=== PATIENT | male | born 2000 | race African-American/Black ===

== ENCOUNTER 2019-12-16 11:35 | Emergency (ER) | payer OTHER ==
[2019-12-16 12:18] VITALS: BP 111/52; PULSE 82; TEMP 98.1; BMI 18.6
--- NOTE | 2019-12-16 12:19 | PDOC ---
History of Present Illness - General Chief Complaint: Nausea/Vomiting Stated Complaint: Cold Symptoms Time Seen by Provider: 12/16/19 12:03 - History of Present Illness Initial Comments: 12/16/19 12:16 19yo M with no reported PMH was BIBEMS for nausea and vomiting since 2am. Patient states he has vomited around 6 times today and was unable to sleep. He reports smoking a "cup" of marijuana over the past day, as well as "a lot" of alcohol. Also reports generalized abdominal pain. States he is very hungry, but did not eat anything today because he "did not know what to eat." Normal BMs, passing gas. Is currently asking for food. States he has smoked 5g per day for the past 5 years, and had this sort of vomiting episode once before. PMH/PSH/Meds/Allergies: none ROS GENERAL/CONSTITUTIONAL: No fever or chills. HEAD, EYES, EARS, NOSE AND THROAT: No change in vision. No ear pain. No sore throat. CARDIOVASCULAR: No chest pain or shortness of breath RESPIRATORY: No cough, wheezing, or hemoptysis. GASTROINTESTINAL: nausea, vomiting. no diarrhea or constipation. GENITOURINARY: No dysuria, frequency, or change in urination. MUSCULOSKELETAL: No joint or muscle swelling or pain. No neck or back pain. SKIN: No rash NEUROLOGIC: No headache, vertigo, loss of consciousness, or change in strength/sensation. ENDOCRINE: No increased thirst. No abnormal weight change. PE GENERAL: Awake, alert, and fully oriented, dry heaving, moaning HEAD: No signs of trauma, normocephalic, atraumatic EYES: PERRLA, EOMI, sclera anicteric, conjunctiva clear ENT: Auricles normal inspection, hearing grossly normal, nares patent, oropharynx clear without exudates. Moist mucosa NECK: Normal ROM, supple, no lymphadenopathy, JVD, or masses LUNGS: No distress, speaks full sentences, clear to auscultation bilaterally HEART: Regular rate and rhythm, normal S1 and S2, no murmurs, rubs or gallops, peripheral pulses normal and equal bilaterally. ABDOMEN: Soft, nontender, normoactive bowel sounds. No guarding, no rebound. No masses EXTREMITIES : Normal inspection, Normal range of motion, no edema. No clubbing or cyanosis. NEUROLOGICAL: Normal speech, no focal sensorimotor deficits SKIN: Warm, Dry, normal turgor, no rashes or lesions noted Vital Signs Temp Pulse Resp BP Pulse Ox 98.1 F 82 16 111/52 L 100 12/16/19 11:51 12/16/19 11:51 12/16/19 11:51 12/16/19 11:51 12/16/19 11:51 MDM 19yo M with no reported PMH was BIBEMS for nausea and vomiting since 2am, and also reports abdominal pain. Most likely diagnosis is cannabinoid hyperemesis. Less likely appendicitis or other acute abdominal pathology. given normal abdominal exam. In the setting of repeat vomiting and poor PO intake, will get CBC to evaluate for infection, CMP for electrolyte abnormalities, and lipase. -CBC, CMP, lipase -tylenol, zofran, pepcide... then PO trial if improved 12/16/19 12:41 EKG: Sinus bradycardia with sinus arrhythmia, rate 59, qTC 384, no ischemic changes Labs: notable for WBC of 19.9 with left shift Lab Results WBC 19.9 K/mm3 (4.0-10.0) H 12/16/19 12:30 RBC 5.09 M/mm3 (4.00-5.60) 12/16/19 12:30 Hgb 15.4 GM/dL (11.7-16.9) 12/16/19 12:30 Hct 46.0 % (35.4-49) 12/16/19 12:30 MCV 90.5 fl (80-96) 12/16/19 12:30 MCHC 33.5 g/dl (32.0-35.9) 12/16/19 12:30 RDW 13.1 % (11.9-15.9) 12/16/19 12:30 Plt Count 210 K/MM3 (134-434) 12/16/19 12:30 Sodium 139 mmol/L (136-145) 12/16/19 12:30 Potassium 3.9 mmol/L (3.5-5.1) 12/16/19 12:30 Chloride 103 mmol/L (98-107) 12/16/19 12:30 Carbon Dioxide 27 mmol/L (21-32) 12/16/19 12:30 Anion Gap 8 MMOL/L (8-16) 09/14/20 12:30 BUN 11.8 mg/dL (7-18) 12/16/19 12:30 Creatinine 1.2 mg/dL (0.55-1.3) 12/16/19 12:30 Random Glucose 118 mg/dL (74-106) H 12/16/19 12:30 Calcium 10.0 mg/dL (8.5-10.1) 12/16/19 12:30 12/16/19 13:24 Patient still with n/v, somewhat improved. Will give another 4mg of zofran and reassess. 12/16/19 15:49 Patient without nausea, vomiting, or abdominal pain. Tolerating solid foods. Repeat abdominal exam: soft, non-tender. DC home with zofran and PCP f/u tomorrow at 4pm. Past History - Medical History Allergies/Adverse Reactions: Allergies Allergy/AdvReac Type Severity Reaction Status Date / Time No Known Allergies Allergy Verified 12/16/19 12:03 Home Medications: Ambulatory Orders Ondansetron [Zofran *Odt*] 4 mg SL QID PRN #12 od.tablet 12/16/19 Asthma: Yes COPD: No - Immunization History Immunization Up to Date: Yes - Psycho-Social/Smoking History Smoking Status: No Smoking History: Unknown if ever smoked Number of Cigarettes Smoked Daily: 0 - Substance Abuse Hx (Audit-C & DAST Scrn) How often the patient has a drink containing alcohol: Never Score: In Men: 4 or > Positive; In Women: 3 or > Positive: 0 Screen Result (Pos requires Nsg. Audit-10AR): Negative In the last yr the pt used illegal drug/Rx for NonMed reason: Yes Score: Yes response is considered Positive: 1 Screen Result (Positive result requires Nsg. DAST-10): Positive *Physical Exam - Vital Signs Last Vital Signs Temp Pulse Resp BP Pulse Ox 98.1 F 82 16 111/52 L 100 12/16/19 11:51 12/16/19 11:51 12/16/19 11:51 12/16/19 11:51 12/16/19 11:51 ED Treatment Course - LABORATORY CBC & Chemistry Diagram: 12/16/19 12:30 12/16/19 12:30 Discharge - Discharge Information Problems reviewed: Yes Clinical Impression/Diagnosis: Vomiting Qualifiers: Vomiting type: unspecified Vomiting Intractability: unspecified Nausea presence: with nausea Qualified Code(s): R11.2 - Nausea with vomiting, unspecified Leukocytosis Qualifiers: Leukocytosis type: unspecified Qualified Code(s): D72.829 - Elevated white blood cell count, unspecified Condition: Improved Disposition: HOME - Admission No - Additional Discharge Information Prescriptions: Ondansetron [Zofran *Odt*] 4 mg SL QID PRN #12 od.tablet PRN Reason: Nausea - Follow up/Referral Referrals: Jose Manuel Martinez MD [Primary Care Provider] - - Patient Discharge Instructions Patient Printed Discharge Instructions: DI for Vomiting -- Adult, DI for Cannabinoid Hyperemesis Syndrome Additional Instructions: You were seen in the ER for vomiting. We did a physical exam and labs, and we gave you fluids and anti-nausea and pain medication. You labs showed an elevated white blood count, which you should follow up about with your primary doctor tomorrow. We also sent zofran, an anti-nausea medication, to your pharmacy. Please stop using marijuana, as this may be the cause of you nausea and vomiting. Please return to the ER for new, continued, or worsening symptoms, fever, blood in your vomit, diarrhea, difficulty breathing, or any other reason. - Post Discharge Activity
[2019-12-16] MEDS ORDERED: FAMOTIDINE 20 MG/50 ML IVPB 20 MG/50 ML MG IVPB ONE ×2 (12:24→12:44)
[2019-12-16] MEDS ORDERED: ACETAMINOPHEN 1000 MG/100 ML VIAL (NON FORMULARY) IVPB ONE (12:24)
[2019-12-16] MEDS ORDERED: SODIUM CHLORIDE 0.9% 500 ML INFUS.BAG IV ONE ×2 (12:25→13:26)
[2019-12-16] MEDS ORDERED: ONDANSETRON 4 MG/2 ML VIAL IVPUSH ONE ×2 (12:25→13:19)
--- NOTE | 2019-12-16 13:19 | PDOC ---
Documentation entered by Bon Valladares SCRIBE, acting as scribe for Juan Pablo Rendon MD. Juan Pablo Rendon MD: This documentation has been prepared by the Jacquelyn grullon Xhesika, SCRIBE, under my direction and personally reviewed by me in its entirety. I confirm that the documentation accurately reflects all work, treatment, procedures, and medical decision making performed by me. Attending Attestation - Resident Resident Name: Shivam Barraza - ED Attending Attestation I have performed the following: I have examined & evaluated the patient, The case was reviewed & discussed with the resident, I agree w/resident's findings & plan, Exceptions are as noted - HPI HPI: 12/16/19 12:06 The patient is a 19y/o M with no pmh who presents to the ED BIBA for nausea, 6 episodes of nbnb vomiting, and generalized abdominal pain since 2AM. Pt states he smoked 5grams of marijuana over the past day and drank "a lot" of alcohol. Pt reports endorsing these symptoms in the past. Allergies: NKDA Social Hx: everyday marijuana smoker and alcohol. - Physicial Exam PE: 12/16/19 13:17 GENERAL: The patient is awake, alert, and fully oriented, Nontoxic - in no acute distress. HEAD: Normocephalic, atraumatic. EYES: extraocular movements intact, sclera anicteric, conjunctiva clear. ENT: Normal voice, dry mucous membranes. NECK: Normal range of motion, supple LUNGS: Breath sounds equal, clear to auscultation bilaterally. No wheezes, no rhonchi, no rales. HEART: Regular rate and rhythm, normal S1 and S2 without murmur, rub or gallop. ABDOMEN: Soft, no abd tenderess, No guarding, no rebound. No CVA tenderness EXTREMITIES: Normal range of motion, no edema. NEUROLOGICAL: No facial assymetry, Normal speech, PSYCH: Normal mood, normal affect. SKIN: Warm, Dry, normal turgor, 12/16/19 15:12 - Medical Decision Making 12/16/19 13:18 suspect cannibinoid hyperemesis syndrome vs gastritis vs gastroenteritis will treat ymptomatically will obtain blood work to r/o metabolid erangement 12/16/19 15:12 labs reviewed noted for leukocytosis with shif pt notes he is liliana massey abd pain repeat abd exam is soft suspect may be due to his discomfort/vomiting/stress response vs acute surgical process will PO challenge the pt and reasesss 12/16/19 16:12 pt tolerated oral intake abd remains sof tnontender will have pt fuwith PMD to repeat labs to ensure leukocytosis resolves Discharge - Discharge Information Problems reviewed: Yes Clinical Impression/Diagnosis: Vomiting Qualifiers: Vomiting type: unspecified Vomiting Intractability: unspecified Nausea presence: with nausea Qualified Code(s): R11.2 - Nausea with vomiting, unspecified Leukocytosis Qualifiers: Leukocytosis type: unspecified Qualified Code(s): D72.829 - Elevated white blood cell count, unspecified Condition: Improved Disposition: HOME - Additional Discharge Information Prescriptions: Ondansetron [Zofran *Odt*] 4 mg SL QID PRN #12 od.tablet PRN Reason: Nausea - Follow up/Referral Referrals: Jose Manuel Martinez MD [Primary Care Provider] - - Patient Discharge Instructions Patient Printed Discharge Instructions: DI for Vomiting -- Adult, DI for Cannabinoid Hyperemesis Syndrome Additional Instructions: You were seen in the ER for vomiting. We did a physical exam and labs, and we gave you fluids and anti-nausea and pain medication. You labs showed an elevated white blood count, which you should follow up about with your primary doctor tomorrow. We also sent zofran, an anti-nausea medication, to your pharmacy. Please stop using marijuana, as this may be the cause of you nausea and vomiting. Please return to the ER for new, continued, or worsening symptoms, fever, blood in your vomit, diarrhea, difficulty breathing, or any other reason. - Post Discharge Activity
[2019-12-16 13:51] LABS: BASO % 0.2 % (0-2.0); EOS % 0.2 % (0-4.5); HEMOGLOBIN 15.4 GM/dL (11.7-16.9); LYMPH % 5.2 % (8-40); MCH 30.3 pg (25.7-33.7); MCHC 33.5 g/dl (32.0-35.9); MEAN CELL VOLUME 90.5 fl (80-96); MEAN PLT VOLUME 9.8 fl (7.5-11.1); MONO % 7.3 % (3.8-10.2); NEUT % 87.1 % (42.8-82.8); PLATELET COUNT 210 K/MM3 (134-434); RBC 5.09 M/mm3 (4.00-5.60); RDW 13.1 % (11.9-15.9); WHITE BLOOD COUNT 19.9 K/mm3 (4.0-10.0)
[2019-12-16 14:00] LABS: ALBUMIN 4.6 g/dl (3.4-5.0); BILIRUBIN,TOTAL 0.6 mg/dL (0.2-1); BLOOD UREA NITROGEN 11.8 mg/dL (7-18); CREATININE 1.2 mg/dL (0.55-1.3); POTASSIUM 3.9 mmol/L (3.5-5.1); TOT PROT 8.5 g/dl (6.4-8.2)
--- NOTE | 2019-12-16 15:55 | EKG ---
Test Reason : Blood Pressure : / mmHG Vent. Rate : 059 BPM Atrial Rate : 059 BPM P-R Int : 130 ms QRS Dur : 088 ms QT Int : 388 ms P-R-T Axes : 064 065 022 degrees QTc Int : 384 ms SINUS BRADYCARDIA WITH SINUS ARRHYTHMIA OTHERWISE NORMAL ECG NO PREVIOUS ECGS AVAILABLE Confirmed by RUSSELL CORNELIUS MD ([id number]) on 12/16/2019 3:55:08 PM Referred By: Confirmed By:RUSSELL CORNELIUS MD
== END 2019-12-16 16:09 | disposition home or self-care (01) ==
LOC: JER 11:35
PROC: 3E0333Z Introduction of Anti-inflammatory into Peripheral Vein, Percutaneous Approach (ICD-10-PCS; principal; 2019-12-16)
PROC: 3E033GC Introduction of Other Therapeutic Substance into Peripheral Vein, Percutaneous Approach (ICD-10-PCS; 2019-12-16)
DX: R11.2 Nausea with vomiting, unspecified (principal); D72.829 Elevated white blood cell count, unspecified
CPT/HCPCS: 36415; 80053; 83690; 85025; 93005; 93010; 99284-25; J0131

== ENCOUNTER 2022-01-27 10:27 | Emergency (ER) | payer OTHER ==
[2022-01-27 10:43] VITALS: BP 105/62; PULSE 79; RESP 20; TEMP 98.1; BMI 19.5
[2022-01-27] MEDS ORDERED: BACITRACIN 0.9 GM PACKET TP ONE (11:17)
[2022-01-27] MEDS ORDERED: BACITRACIN 15 GM TUBE TOPICAL OINTMENT ONE (11:18)
== END 2022-01-27 11:56 | disposition home or self-care (01) ==
LOC: JERFT 10:27
DX: S60.511A Abrasion of right hand, initial encounter (principal); V86.96XA Unspecified occupant of dirt bike or motor/cross bike injured in nontraffic accident, initial encounter
CPT/HCPCS: 73130-TC-RT-FY; 99283-25

== ENCOUNTER 2022-03-13 18:23 | Emergency (ER) | payer OTHER ==
[2022-03-13 18:32] VITALS: BP 104/63; PULSE 104; RESP 18; TEMP 98.2; BMI 19.3
[2022-03-13 20:02] LABS: BASO % 0.3 % (0-2.0); HEMATOCRIT 45.7 % (35.4-49); LYMPH % 30.1 % (8-40); MCHC 32.8 g/dl (32.0-35.9); MEAN CELL VOLUME 91.5 fl (80-96); MEAN PLT VOLUME 9.4 fl (7.5-11.1); MONO % 11.6 % (3.8-10.2); PLATELET COUNT 222 10^3/uL (134-434); RBC 4.99 M/mm3 (4.00-5.60); RDW 13.1 % (11.9-15.9); WHITE BLOOD COUNT 6.3 K/mm3 (4.0-10.0)
[2022-03-13] MEDS ORDERED: ACETAMINOPHEN 500 MG TABLET (FP) PO ONE (20:52)
[2022-03-13] MEDS ORDERED: ACETAMINOPHEN 325 MG TABLET (FP) ONE (20:55)
[2022-03-13 21:00] LABS: ALBUMIN 4.4 g/dl (3.4-5.0); CALCIUM 9.6 mg/dL (8.5-10.1)
[2022-03-13 21:02] LABS: CREATININE 1.1 mg/dL (0.55-1.3)
[2022-03-13 21:03] LABS: TOT PROT 7.5 g/dl (6.4-8.2)
[2022-03-13 21:19] LABS: BILIRUBIN,TOTAL 0.4 mg/dL (0.2-1)
== END 2022-03-13 21:39 | disposition home or self-care (01) ==
LOC: JER 18:23
DX: R07.9 Chest pain, unspecified (principal)
CPT/HCPCS: 36415; 71046-TC-FY; 80053; 84484; 85025; 93005; 93010; 99285-25

== ENCOUNTER 2022-03-22 00:10 | Emergency (ER) | payer OTHER ==
[2022-03-22 00:27] VITALS: BP 96/64; PULSE 87; RESP 18; TEMP 97.5; BMI 19.3
[2022-03-22] MEDS ORDERED: ALBUTEROL SO4 2.5/IPRATROPIUM 0.5 INH SOL 3 ML VIAL.NEB. NEB ONE ×2 (01:09→01:15)
[2022-03-22] MEDS ORDERED: KETOROLAC TROMETHAMINE 30 MG/1 ML VIAL IM ONE (01:19)
[2022-03-22] MEDS ORDERED: KETOROLAC TROMETHAMINE 30 MG/1 ML VIAL ONE ×2 (01:21)
[2022-03-22 02:10] LABS: BASO % 0.5 % (0-2.0); EOS % 2.3 % (0-4.5); HEMATOCRIT 45.5 % (35.4-49); HEMOGLOBIN 15.4 GM/dL (11.7-16.9); LYMPH % 53.5 % (8-40); MCH 30.6 pg (25.7-33.7); MCHC 33.7 g/dl (32.0-35.9); MEAN CELL VOLUME 90.7 fl (80-96); MEAN PLT VOLUME 9.5 fl (7.5-11.1); MONO % 17.1 % (3.8-10.2); NEUT % 26.6 % (42.8-82.8); PLATELET COUNT 192 10^3/uL (134-434); RBC 5.02 M/mm3 (4.00-5.60); RDW 12.6 % (11.9-15.9); WHITE BLOOD COUNT 4.6 K/mm3 (4.0-10.0)
[2022-03-22 02:33] LABS: CALCIUM 9.4 mg/dL (8.5-10.1)
[2022-03-22 02:34] LABS: ALBUMIN 4.2 g/dl (3.4-5.0); BLOOD UREA NITROGEN 12.6 mg/dL (7-18)
[2022-03-22 02:36] LABS: CREATININE 1.1 mg/dL (0.55-1.3)
[2022-03-22 02:38] LABS: BILIRUBIN,TOTAL 0.4 mg/dL (0.2-1); TOT PROT 7.6 g/dl (6.4-8.2)
[2022-03-22 02:48] LABS: ACTIVATED PTT 34.9 SECONDS (25.2-36.5); INR 1.03 (0.83-1.09); PROTHROMBIN TIME (PATIENT) 11.9 SEC (9.7-13.0)
== END 2022-03-22 03:03 | disposition home or self-care (01) ==
LOC: JER 00:10
PROC: 3E0F7GC Introduction of Other Therapeutic Substance into Respiratory Tract, Via Natural or Artificial Opening (ICD-10-PCS; principal; 2022-03-22)
PROC: 3E0233Z Introduction of Anti-inflammatory into Muscle, Percutaneous Approach (ICD-10-PCS; 2022-03-22)
DX: R07.9 Chest pain, unspecified (principal)
CPT/HCPCS: 36415; 71046-TC-FY; 80053; 83690; 84484; 85025; 85610; 85730; 93005; 93010; 99285-25

== ENCOUNTER 2023-09-14 16:54 | Emergency (ER) | payer OTHER ==
[2023-09-14 16:58] VITALS: BP 115/69; PULSE 63; RESP 18; TEMP 98.5
[2023-09-14] MEDS ORDERED: ACETAMINOPHEN 500 MG TABLET (FP) ONE (18:03)
[2023-09-14] MEDS ORDERED: DIPHTH,PERTUSS(ACELL),TET 0.5 ML DISP.SYRIN IM ONE (18:04)
[2023-09-14] MEDS: DIPHTH,PERTUSS(ACELL),TET 0.5 ML DISP.SYRIN IM ONE (18:04)
[2023-09-14] MEDS: ACETAMINOPHEN 650 MG/20.3 ML ORAL SOLUTION (CUPS) PO ONE (18:08)
== END 2023-09-14 20:16 | disposition home or self-care (01) ==
LOC: JERFT 16:54
PROC: 0HQFXZZ Repair Right Hand Skin, External Approach (ICD-10-PCS; principal; 2023-09-14)
PROC: 3E0234Z Introduction of Serum, Toxoid and Vaccine into Muscle, Percutaneous Approach (ICD-10-PCS; 2023-09-14)
DX: S61.211A Laceration without foreign body of left index finger without damage to nail, initial encounter (principal); W26.0XXA Contact with knife, initial encounter; Z23 Encounter for immunization
CPT/HCPCS: 73140-TC-LT-FY; 90715; 99284-25

== ENCOUNTER 2023-09-21 12:51 | Emergency (ER) | payer OTHER ==
[2023-09-21 13:12] VITALS: BP 101/60; PULSE 83; RESP 19; TEMP 98.2; BMI 19.4
== END 2023-09-21 15:29 | disposition home or self-care (01) ==
LOC: JERFT 12:51
DX: M79.645 Pain in left finger(s) (principal); Z48.01 Encounter for change or removal of surgical wound dressing
CPT/HCPCS: 73140-TC-LT-FY; 99283-25

== ENCOUNTER 2023-09-25 12:02 | Emergency (ER) | payer OTHER ==
[2023-09-25 12:06] VITALS: BP 104/56; PULSE 68; RESP 18; TEMP 98.5; BMI 19.5
== END 2023-09-25 12:37 | disposition home or self-care (01) ==
LOC: JERFT 12:02
DX: Z48.02 Encounter for removal of sutures (principal)
CPT/HCPCS: 99281-25

== ENCOUNTER 2024-12-01 10:27 | Emergency (ER) | payer OTHER ==
[2024-12-01 10:35] VITALS: BP 102/62; PULSE 73; RESP 20; TEMP 98.5; BMI 18.4
[2024-12-01 13:47] LABS: ABSOLUTE IMMATURE GRANULOCYTES 0.03 x10^3/uL (0.0-0.031); BASOPHILS # 0.04 x10^3/uL (0.01-0.08); EOSINOPHIL % 1.1 % (0.8-7.0); EOSINOPHILS # 0.07 x10^3/uL (0.04-0.54); MCHC 33.6 g/dl (32.3-36.5); MEAN CELL VOLUME 90.7 fl (79.0-92.2); MEAN PLT VOLUME 10.5 fl (9.4-12.4); MONOCYTE # 0.76 x10^3/uL (0.30-0.82); MONOCYTE % 11.5 % (5.3-12.2); RDW 12.0 % (11.9-15.3)
[2024-12-01 13:48] LABS: URINE APPEARANCE CLEAR; URINE BILIRUBIN NEGATIVE (NEGATIVE); URINE COLOR YELLOW; URINE GLUCOSE (UA) NEGATIVE (NEGATIVE); URINE KETONE NEGATIVE (NEGATIVE); URINE LEUK ESTERASE NEGATIVE (NEGATIVE); URINE NITRITE NEGATIVE (NEGATIVE); URINE PROTEIN NEGATIVE (NEGATIVE); URINE UROBILINOGEN 0.2 mg/dL (0.2-1.0)
[2024-12-01 14:05] LABS: GLUCOSE,RANDOM 45 mg/dL (74-106); TOT PROT 7.5 g/dl (6.4-8.2)
[2024-12-01 14:06] LABS: CO2 28 mmol/L (21-32)
[2024-12-01 14:08] LABS: ALK PHOS 66 U/L (40-150)
[2024-12-01 14:10] LABS: SGPT/ALT 11 U/L (0-55)
[2024-12-01 14:11] LABS: CREATININE 1.14 mg/dL (0.55-1.3); SGOT/AST 21 U/L (5-34)
[2024-12-01 14:31] LABS: HCV DIAGNOSTIC IN-HOUSE W/RFLX NON-REACTIVE (NONREACTIVE); HIV INTERPRETATION NEGATIVE (NEGATIVE)
== END 2024-12-01 14:01 | disposition home or self-care (01) ==
LOC: JERFT 10:27
DX: R22.42 Localized swelling, mass and lump, left lower limb (principal)
CPT/HCPCS: 36415; 76882-TC-RT-FY; 80053; 81003; 85025; 86780; 86803; 87086; 87389; 87491; 87591; 87661; 99284-25